=== PATIENT | female | born 1985 | race Hispanic/Latino ===

== ENCOUNTER 2023-10-05 14:47 | Emergency (ER) | payer OTHER, SELFPAY ==
[2023-10-05] MEDS ORDERED: Ondansetron PF 4 MG/2 ML Vial ONE (15:09)
[2023-10-05 15:53] LABS: #Monocytes 0.5 10x3/uL (0.0-1.1); #Neutrophils 4.7 10x3/uL (1.5-8.4); %Basophils 0.3 % (0.0-2.0); %Eosinophils 0.4 % (0.0-6.0); %Lymphocytes 33.9 % (18.0-47.0); %Monocytes 5.7 % (0.0-10.0); %Neutrophils 59.4 % (40.0-75.0); Hemoglobin 14.4 g/dL (12.0-15.5); Mean Corpuscular HGB CONC 35.1 g/dL (32.0-36.0); Mean Corpuscular Hemoglobin 32.4 pg (27.0-33.0); Mean Corpuscular Volume 92.3 fl (81.6-98.3); Mean Platelet Volume 9.9 fl (7.4-10.4); Platelet Count 233 10x3/uL (150-450); RBC Distribution Width 11.9 % (11.5-14.5); Red Blood Cell (RBC) Count 4.44 10x6/uL (3.90-5.03); White Blood Cell (WBC) Count 7.8 10x3/uL (3.5-10.5)
[2023-10-05 16:07] LABS: ALT (SGPT) 87 U/L (8-55); AST (SGOT) 88 U/L (5-34); Albumin 4.2 g/dL (3.5-5.0); Alkaline Phosphatase 67 U/L (40-110); Anion Gap 15 mmol/L (10-20); BUN (Urea Nitrogen) 6 mg/dL (7.0-18.7); Bilirubin, Total 0.6 mg/dL (0.2-1.2); Calc. Creatinine Clearance 0 mL/min (70-130); Calcium 9.2 mg/dL (7.8-10.44); Carbon Dioxide 22 mmol/L (22-29); Chloride 105 mmol/L (98-107); Estimated GFR 118; Glucose 86 mg/dL (70-105); Potassium 3.8 mmol/L (3.5-5.1); Protein, Total 8.2 g/dL (6.0-8.3); Sodium 138 mmol/L (136-145)
== END 2023-10-05 16:48 | disposition home or self-care (01) ==
LOC: CSHERS 14:47
DX: O21.0 Mild hyperemesis gravidarum (principal); Z3A.12 12 weeks gestation of pregnancy
CPT/HCPCS: 36415; 80053; 84702; 85025; 96361; 96374; J2405

== ENCOUNTER 2024-04-05 10:12 | Inpatient (IN) | payer MEDICAID, OTHER ==
[2024-04-05 11:09] VITALS: BMI 28.9
[2024-04-05] MEDS ORDERED: Tranexamic Acid 1,000 MG/10 ML VIAL IVP PRN (11:23)
[2024-04-05] MEDS ORDERED: Ondansetron PF 4 MG/2 ML Vial IVP PRN (11:23)
[2024-04-05] MEDS ORDERED: HYDROcodone/Acetaminophen 5/325 mg Tablet PO PRN (11:23)
[2024-04-05] MEDS ORDERED: hydrALAZINE 20 MG/ML VIAL SLOW IVP PRN (11:23)
[2024-04-05] MEDS ORDERED: Diphenoxylate HCl/Atropine Tablet PO PRN (11:23)
[2024-04-05] MEDS ORDERED: Carboprost 250 MCG/ML AMP IM PRN (11:23)
[2024-04-05] MEDS ORDERED: Promethazine HCl 25 MG/ML VIAL IM PRN (11:23)
[2024-04-05] MEDS ORDERED: Lidocaine 1% (PF) 30 ML VIAL SC PRN (11:23)
[2024-04-05] MEDS ORDERED: Methylergonovine 0.2 MG/ML VIAL IM PRN (11:23)
[2024-04-05] MEDS ORDERED: Misoprostol 200 MCG TAB PR PRN (11:23)
[2024-04-05] MEDS ORDERED: Oxytocin 30 units/NS 500 ML 500 ML IV SCH ×3 (11:30)
[2024-04-05 12:08] LABS: Hematocrit 30.5 % (34.9-44.5); Hemoglobin 9.7 g/dL (12.0-15.5); Mean Corpuscular HGB CONC 31.8 g/dL (32.0-36.0); Mean Corpuscular Hemoglobin 26.1 pg (27.0-33.0); Mean Corpuscular Volume 82.2 fl (81.6-98.3); Mean Platelet Volume 12.3 fl (7.4-10.4); Platelet Count 189 10x3/uL (150-450); RBC Distribution Width 16.4 % (11.5-14.5); Red Blood Cell (RBC) Count 3.71 10x6/uL (3.90-5.03); White Blood Cell (WBC) Count 7.2 10x3/uL (3.5-10.5)
[2024-04-05 12:40] LABS: HBsAg Index 0.17 S/CO (0-0.99); Hep B Surf Ag - L&D Non-Reactive S/CO (NonReactive)
[2024-04-05 12:41] LABS: Syphilis Antibody Nonreactive (Nonreactive); Syphilis Antibody Index 0.04 S/CO (<1.00 Non-Reactive)
[2024-04-05] MEDS: fentaNYL 50 mcg/mL 1 mL Vial SLOW IVP PRN (15:34)
[2024-04-05] MEDS: Ibuprofen 800 MG TAB PO PRN (15:55)
[2024-04-05] MEDS: Lactated Ringer's 1,000 ML IV SCH (19:56)
[2024-04-05] MEDS: Misoprostol 200 MCG TAB ONE (19:57)
[2024-04-05] MEDS: Oxytocin 30 units/NS 500 ML 500 ML ONE ×2 (19:57→19:58)
[2024-04-05] MEDS: Tranexamic Acid 1,000 MG/10 ML VIAL ONE (19:57)
[2024-04-05] MEDS: Carboprost 250 MCG/ML AMP ONE (19:57)
[2024-04-05] MEDS: Methylergonovine 0.2 MG/ML VIAL ONE (19:58)
[2024-04-05] MEDS: Acetaminophen 500 MG TAB PO PRN (21:07)
[2024-04-06] MEDS ORDERED: Boostrix 0.5 ML (Tdap) VIAL (>/=7 yrs of age) IM ONE (04:42)
[2024-04-06] MEDS ORDERED: Ondansetron PF 4 MG/2 ML Vial IVP PRN (04:42)
[2024-04-06] MEDS ORDERED: diphenhydrAMINE 25 MG CAP PO PRN (04:42)
[2024-04-06] MEDS ORDERED: hydrALAZINE 20 MG/ML VIAL SLOW IVP PRN (04:42)
[2024-04-06] MEDS ORDERED: Bisacodyl 10 MG SUPP PR PRN (04:42)
[2024-04-06] MEDS ORDERED: Lanolin Ointment 7 GM TUBE TOP PRN (04:42)
[2024-04-06] MEDS ORDERED: Milk Of Magnesia 30 ML UDCUP PO PRN (04:42)
[2024-04-06] MEDS ORDERED: Promethazine HCl 25 MG/ML VIAL IM PRN (04:42)
[2024-04-06] MEDS: Ibuprofen 800 MG TAB PO SCH (05:24)
[2024-04-06] MEDS: Docusate 100 MG CAP PO SCH (05:25)
[2024-04-06] MEDS: Ferrous Sulfate 325 MG TAB PO SCH (09:10)
[2024-04-06] MEDS: Prenatal Vitamin 1 TAB PO SCH (09:10)
[2024-04-06 11:18] VITALS: BP 117/69; TEMP 98.3
[2024-04-06] MEDS: Benzocaine-Menthol 82.5 ML CAN TOP PRN (17:55)
[2024-04-06] MEDS: HYDROcodone/Acetaminophen 5/325 mg Tablet PO PRN (17:55)
[2024-04-06] MEDS ORDERED: Docusate 100 MG CAP PO SCH (21:00)
== END 2024-04-06 18:15 | disposition home or self-care (01) | DRG 807 ==
LOC: CSHLD 10:12 → CSHPP 18:20
PROVIDERS: ADMIT Family Medicine; ATTEND Family Medicine
PROC: 10E0XZZ Delivery of Products of Conception, External Approach (ICD-10-PCS; principal; 2024-04-05)
PROC: 0KQM0ZZ Repair Perineum Muscle, Open Approach (ICD-10-PCS; 2024-04-05)
DX: O09.523 Supervision of elderly multigravida, third trimester (principal); Z3A.38 38 weeks gestation of pregnancy; Z37.0 Single live birth; O09.43 Supervision of pregnancy with grand multiparity, third trimester; Z79.82 Long term (current) use of aspirin; O70.1 Second degree perineal laceration during delivery
CPT/HCPCS: 85027; 86780; 86850; 86900; 86901; 87340; J3010

== ENCOUNTER 2024-04-30 01:24 | Emergency (ER) | payer OTHER ==
[2024-04-30] MEDS ORDERED: Acetaminophen 500 MG TAB ONE (02:02)
[2024-04-30 02:04] LABS: Bilirubin Neg (Negative); Blood, Urine 250 (Negative); Clarity Slightly Cloudy (Clear); Glucose, Urine (Dipstick) Normal (Negative); Ketone, Urine Negative (Negative); Leukocyte 500 (Negative); Nitrite Negative (Negative); Protein, Urine (Dipstick) 15 mg/dl (Neg-Trace); Urobilinogen Normal mg/dL (Less than 2)
[2024-04-30 02:10] LABS: #Basophils 0.02 10x3/uL (0.0-0.2); #Eosinphils 0.02 10x3/uL (0.0-0.5); #Monocytes 0.75 10x3/uL (0.0-1.1); #Neutrophils 6.65 10x3/uL (1.5-8.4); %Basophils 0.2 % (0.0-2.0); %Eosinophils 0.2 % (0.0-6.0); %Lymphocytes 17.2 % (18.0-47.0); %Monocytes 8.3 % (0.0-10.0); %Neutrophils 73.9 % (40.0-75.0); Hemoglobin 12.2 g/dL (12.0-15.5); Mean Corpuscular Hemoglobin 26.8 pg (27.0-33.0); Mean Corpuscular Volume 81.3 fL (81.6-98.3); Mean Platelet Volume 9.9 fL (7.4-10.4); Platelet Count 219 10x3/uL (150-450); Red Blood Cell (RBC) Count 4.55 10x6/uL (3.90-5.03)
[2024-04-30 02:16] LABS: CAUTI Indications for Culture Pelvic or flank pain; Squamous Epithelial 0-3 HPF (0-3); Transitional Epithelial 0-3 HPF (None Seen)
[2024-04-30 02:17] LABS: Bacteria/HPF 1+ HPF (None Seen)
[2024-04-30 02:18] LABS: BHCG - Serum Negative (NEGATIVE); Pregs Control Background? CLEAR/WHITE (CLR/WHITE); Pregs Control Bar Appear? YES (CONTROL BAR)
[2024-04-30 02:18] LABS: Urine Culture Reflex No No
[2024-04-30 02:26] LABS: ALT (SGPT) 15 U/L (8-55); AST (SGOT) 25 U/L (5-34); Albumin 3.6 g/dL (3.5-5.0); Alkaline Phosphatase 96 U/L (40-110); Anion Gap 16 mmol/L (10-20); BUN (Urea Nitrogen) 11 mg/dL (7.0-18.7); Bilirubin, Total 0.6 mg/dL (0.2-1.2); Calc. Creatinine Clearance 0 mL/min (70-130); Calcium 8.7 mg/dL (7.8-10.44); Carbon Dioxide 20 mmol/L (22-29); Chloride 105 mmol/L (98-107); Estimated GFR 104; Glucose 119 mg/dL (70-105); Lipase 22 U/L (8-78); Magnesium 2.1 mg/dL (1.6-2.6); Potassium 3.9 mmol/L (3.5-5.1); Protein, Total 7.6 g/dL (6.0-8.3); Sodium 137 mmol/L (136-145)
[2024-04-30] MEDS ORDERED: cefTRIAXone (ROCEPHIN) 2 GM VIAL ONE (02:43)
[2024-04-30] MEDS ORDERED: Iopamidol 300 61% 100 ML VIAL FS ONE (13:02)
== END 2024-04-30 04:00 | disposition home or self-care (01) ==
LOC: CSHERS 01:24
DX: N10 Acute pyelonephritis (principal)
CPT/HCPCS: 74177; 80053; 81001; 83605; 83690; 83735; 84703; 85025; 96365; J0696; Q9967

== ENCOUNTER 2024-04-30 21:26 | Inpatient (IN) | payer OTHER ==
[2024-04-30] MEDS ORDERED: Morphine 4 MG/ML VIAL ONE (22:26)
[2024-04-30] MEDS ORDERED: cefTRIAXone (ROCEPHIN) 2 GM VIAL ONE (22:26)
[2024-04-30 23:03] LABS: ALT (SGPT) 17 U/L (8-55); AST (SGOT) 22 U/L (5-34); Albumin 3.6 g/dL (3.5-5.0); Alkaline Phosphatase 107 U/L (40-110); Anion Gap 18 mmol/L (10-20); BUN (Urea Nitrogen) 7 mg/dL (7.0-18.7); Bilirubin, Total 0.6 mg/dL (0.2-1.2); Calc. Creatinine Clearance 0 mL/min (70-130); Carbon Dioxide 20 mmol/L (22-29); Chloride 98 mmol/L (98-107); Estimated GFR 104; Globulin 4.1 g/dL (2.4-3.5); Glucose 95 mg/dL (70-105); Potassium 3.2 mmol/L (3.5-5.1); Protein, Total 7.7 g/dL (6.0-8.3); Sodium 133 mmol/L (136-145)
[2024-04-30 23:09] LABS: #Basophils 0.02 10x3/uL (0.0-0.2); #Eosinphils 0.08 10x3/uL (0.0-0.5); #Monocytes 0.73 10x3/uL (0.0-1.1); #Neutrophils 8.39 10x3/uL (1.5-8.4); %Basophils 0.2 % (0.0-2.0); %Eosinophils 0.7 % (0.0-6.0); %Lymphocytes 16.7 % (18.0-47.0); %Monocytes 6.6 % (0.0-10.0); %Neutrophils 75.4 % (40.0-75.0); Hematocrit 36.6 % (34.9-44.5); Hemoglobin 12.2 g/dL (12.0-15.5); Mean Corpuscular HGB CONC 33.3 g/dL (32.0-36.0); Mean Corpuscular Hemoglobin 27.1 pg (27.0-33.0); Mean Corpuscular Volume 81.2 fL (81.6-98.3); Platelet Count 199 10x3/uL (150-450); RBC Distribution Width 20.9 % (11.5-14.5); Red Blood Cell (RBC) Count 4.51 10x6/uL (3.90-5.03); White Blood Cell (WBC) Count 11.1 10x3/uL (3.5-10.5)
[2024-04-30] MEDS ORDERED: Potassium Chloride 20 MEQ TAB ONE (23:19)
[2024-05-01] MEDS ORDERED: Ondansetron ODT 4 MG TAB PO PRN (03:38)
[2024-05-01] MEDS ORDERED: Morphine 4 MG/ML VIAL ONE (03:53)
[2024-05-01 04:11] VITALS: BMI 24.7
[2024-05-01] MEDS: 1/2 NS w/Potassium 20 mEq 1,000 ML IV SCH (05:25)
[2024-05-01 05:45] LABS: #Basophils 0.02 10x3/uL (0.0-0.2); #Eosinphils 0.01 10x3/uL (0.0-0.5); #Monocytes 0.96 10x3/uL (0.0-1.1); #Neutrophils 7.16 10x3/uL (1.5-8.4); %Basophils 0.2 % (0.0-2.0); %Eosinophils 0.1 % (0.0-6.0); %Lymphocytes 23.2 % (18.0-47.0); %Neutrophils 67.1 % (40.0-75.0); Hematocrit 35.4 % (34.9-44.5); Hemoglobin 11.6 g/dL (12.0-15.5); Mean Corpuscular HGB CONC 32.8 g/dL (32.0-36.0); Mean Corpuscular Hemoglobin 27.3 pg (27.0-33.0); Mean Corpuscular Volume 83.3 fL (81.6-98.3); Mean Platelet Volume 10.5 fL (7.4-10.4); Platelet Count 193 10x3/uL (150-450); RBC Distribution Width 20.8 % (11.5-14.5); Red Blood Cell (RBC) Count 4.25 10x6/uL (3.90-5.03); White Blood Cell (WBC) Count 10.7 10x3/uL (3.5-10.5)
[2024-05-01 06:02] LABS: Anion Gap 16 mmol/L (10-20); BUN (Urea Nitrogen) 7 mg/dL (7.0-18.7); Calc. Creatinine Clearance 104 mL/min (70-130); Calcium 8.7 mg/dL (7.8-10.44); Carbon Dioxide 18 mmol/L (22-29); Chloride 106 mmol/L (98-107); Estimated GFR 107; Glucose 89 mg/dL (70-105); Sodium 136 mmol/L (136-145)
[2024-05-01] MEDS: Enoxaparin 40 MG (0.4 mL) SYRINGE SC SCH (08:14)
[2024-05-01] MEDS: Acetaminophen 325 MG TAB PO PRN (08:14)
[2024-05-01 09:22] LABS: Bilirubin Neg (Negative); Blood, Urine 150 (Negative); Clarity Clear (Clear); Glucose, Urine (Dipstick) Normal (Negative); Ketone, Urine 50 mg/dL (Negative); Leukocyte Negative (Negative); Nitrite Negative (Negative); Protein, Urine (Dipstick) 15 mg/dl (Neg-Trace); Urobilinogen Normal mg/dL (Less than 2)
[2024-05-01 10:33] LABS: Bacteria/HPF None Seen HPF (None Seen); Squamous Epithelial 0-3 HPF (0-3); WBC/HPF 0-3 HPF (0-3)
[2024-05-01] MEDS: HYDROcodone/Acetaminophen 5/325 mg Tablet PO PRN (16:06)
[2024-05-01] MEDS: cefTRIAXone\\ROCEPHIN 2 GM in Sodium Chloride 0.9% 100 ML IVPB SCH (23:33)
[2024-05-02] MEDS: Docusate 100 MG CAP PO PRN (11:23)
[2024-05-02] MEDS: Morphine 2 MG/ML VIAL SLOW IVP PRN (11:23)
[2024-05-02] MEDS: Polyethylene Glycol 3350 17 GM Packet PO PRN (11:23)
[2024-05-02] MEDS: Ondansetron PF 4 MG/2 ML Vial IVP PRN (12:12)
[2024-05-02] MEDS: Pantoprazole 40 MG VIAL IVP SCH (13:53)
[2024-05-02] MEDS: Acidophilus Lactiobac CAPSULE PO SCH (16:49)
[2024-05-03 04:43] LABS: #Basophils 0.03 10x3/uL (0.0-0.2); #Eosinphils 0.07 10x3/uL (0.0-0.5); %Basophils 0.5 % (0.0-2.0); %Eosinophils 1.2 % (0.0-6.0); %Lymphocytes 40.9 % (18.0-47.0); %Monocytes 10.7 % (0.0-10.0); %Neutrophils 46.2 % (40.0-75.0); Hematocrit 34.5 % (34.9-44.5); Hemoglobin 11.4 g/dL (12.0-15.5); Mean Corpuscular Volume 81.8 fL (81.6-98.3); Mean Platelet Volume 10.9 fL (7.4-10.4); Platelet Count 226 10x3/uL (150-450); RBC Distribution Width 20.3 % (11.5-14.5); Red Blood Cell (RBC) Count 4.22 10x6/uL (3.90-5.03); White Blood Cell (WBC) Count 5.6 10x3/uL (3.5-10.5)
[2024-05-03 05:03] LABS: Anion Gap 14 mmol/L (10-20); BUN (Urea Nitrogen) 5 mg/dL (7.0-18.7); Calc. Creatinine Clearance 118 mL/min (70-130); Carbon Dioxide 23 mmol/L (22-29); Chloride 102 mmol/L (98-107); Estimated GFR 115; Glucose 101 mg/dL (70-105); Potassium 3.4 mmol/L (3.5-5.1); Sodium 136 mmol/L (136-145)
[2024-05-03 09:05] VITALS: BP 99/61; TEMP 98.3
[2024-05-03] MEDS: Pantoprazole 40 MG VIAL IVP SCH (10:08)
== END 2024-05-03 12:15 | disposition home or self-care (01) | DRG 776 ==
LOC: CSHERS 21:26 → CSHERHOLD 05-01 01:46 → OBSVTOIN 05-01 03:38 → CSHPP 05-01 05:09 → CSHTELE 05-02 17:04
PROVIDERS: ADMIT Family Medicine; ATTEND Family Medicine
DX: O86.21 Infection of kidney following delivery (principal); N10 Acute pyelonephritis; O99.285 Endocrine, nutritional and metabolic diseases complicating the puerperium; E87.6 Hypokalemia; Z79.891 Long term (current) use of opiate analgesic; Z79.899 Other long term (current) drug therapy; Z90.49 Acquired absence of other specified parts of digestive tract
CPT/HCPCS: 36415; 74177; 80048; 80053; 81001; 83605; 83690; 83735; 84703; 85025; 87040; 87086; 96365; 96374; 96375; 96376; C9113; J0696; J1650; J2270; J2272; J2405; J3480; J3490; Q9967